=== PATIENT | male | born 1965 | race Caucasian/White ===

== ENCOUNTER → 2022-06-02 10:11 | Outpatient (CLI) | payer BC, SELFPAY ==
--- NOTE | ~2022-06-02 | CT_ITS ---
EXAMINATION: CT chest abdomen pelvis w con DATE: 06/02/2022 10:43 INDICATION: Malignant neoplasm of lung. TECHNIQUE: Computed tomography (CT) of the chest, abdomen, and pelvis was performed with 100 mL Omnip aque 350 intravenous contrast. Automated exposure control and iterative reconstruction technique were employed. The dose-length product was 547.64 mGy-cm. COMPARISON: None FINDINGS: CHEST CT: There are changes of right upper lobectomy. There is mild emphysema. There is mild scarring at the cecil ng apices. A calcified right lung nodule and calcified right hilar and mediastinal lymph nodes are co nsistent with old granulomatous disease. There is a 6 mm nodule in left upper lobe. There is a 2 mm n odule in left upper lobe. There is a 5 mm nodule in left upper lobe. No pleural effusion. The heart s ize is normal. There are coronary artery calcifications. No pericardial effusion. There is wall thick ening of the distal esophagus with calcifications. There is mild thoracic spondylosis. ABDOMEN/PELVIS CT: There are cysts in the liver measuring up to 8 mm. The gallbladder, spleen, pancreas, and adrenal gla nds are normal. There are simple cysts in the kidneys measuring up to 1.7 cm on the left. There are m ultiple masses in left kidney measuring soft tissue attenuation measuring up to 2.8 cm. The prostate is moderately enlarged. There are scattered diverticula in the colon. There is wall thickening of the sigmoid colon. There are changes of right hemicolectomy. There are no dilated loops of bowel. There are no pathologically enlarged lymph nodes. There is no free intraperitoneal fluid. There is mild galina nosis of celiac axis and moderate stenosis of superior mesenteric artery. There is no significant galina nosis of the renal arteries. 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 There is a patent femorofemoral bypass graft. There is mild lumbar spondylosis. IMPRESSION: 1. Pulmonary nodules measuring up to 6 mm, which may be granulomatous disease or less likely metastat ic disease. 2. Mild emphysema. 3. Wall thickening of the distal esophagus suspicious for malignancy. Endoscopy is recommended. 4. Left kidney masses measuring up to 2.8 cm, which may be hemorrhagic cysts and/or neoplasm(s). Abdo men CT without and with contrast is recommended. 5. Wall thickening of the sigmoid colon, which may be chronic diverticulitis. Reviewed, dictated and finalized at location A. UP EXAMINER IMPRESSION: 1. Pulmonary nodules measuring up to 6 mm, which may be granulomatous disease o r less likely metastatic disease. 2. Mild emphysema. 3. Wall thickening of the distal esophagus suspicious for malignancy. Endoscopy is recommended. 4. Left kidney masses measuring up to 2.8 cm, which may be hemorrhagic cysts an d/or neoplasm(s). Abdomen CT without and with contrast is recommended. 5. Wall thickening of the sigmoid colon, which may be chronic diverticulitis.
[2022-06-02 10:35] LABS: Estimated Glomerular Filt Rate > 60
== END ==
PROVIDERS: PCP Family Medicine Sports Medicine
DX: C34.90 Malignant neoplasm of unspecified part of unspecified bronchus or lung (principal); C18.9 Malignant neoplasm of colon, unspecified; C85.97 Non-Hodgkin lymphoma, unspecified, spleen; R91.8 Other nonspecific abnormal finding of lung field; J43.9 Emphysema, unspecified; N28.89 Other specified disorders of kidney and ureter
CPT/HCPCS: 71260; 74177; Q9967

== ENCOUNTER → 2023-08-14 09:06 | Outpatient (CLI) | payer BC, SELFPAY ==
--- NOTE | ~2023-08-14 | CT_ITS ---
Clinical Indication: Lung cancer, colon cancer CT Scan of the Chest, Abdomen, and Pelvis with Contrast: Technique: Contiguous sections were acquired throughout the chest, abdomen, and pelvis after intraven ous administration of 100 cc of Omnipaque 350. Dose reduction technique was used on this scan by michelle gutierrez automated exposure control and iterative reconstruction technique. The dose-length product (DL P) was 469.40 mGy-cm. COMPARISON: 06/02/2022 Findings: There is no evidence of any significant mediastinal, hilar or axillary lymphadenopathy. Calcified med iastinal lymph nodes are present. There are atherosclerotic calcifications of the aorta and coronary arteries. No aortic aneurysm or dissection evident. There is no evidence of pleural or pericardial effusion. . Patient is status post right upper lobectomy with associated postoperative change. There is mild b iapical scarring. There is a 6 mm left upper lobe pulmonary nodule, mildly increased from prior exam (axial image 63). Stable focal groundglass nodule in the left lower lobe. The liver, spleen, pancreas, gallbladder, adrenals and right kidney are within normal limits. Stable 2.5 cm solid-appearing mass at the left lower renal pole. There are atherosclerotic calcifications of the aorta. No lymphadenopathy. No bowel obstruction or bowel wall thickening. There is evidence of prior partial right colectomy. Possible mild urinary bladder wall thickening. Prostate gland minimally enlarged. Femoral-femoral byp ass noted. Impression: 6 mm left upper lobe pulmonary nodule, probably minimally increased from prior exam. Minimal interval change suggests a benign lesion. Status post right upper lobectomy. Stable 2.5 cm solid appearing mass the left lower renal pole. Stability suggests a benign lesion. Status post partial right colectomy. Reviewed, dictated and finalized at [facility]. L CAD TECH Impression: 6 mm left upper lobe pulmonary nodule, probably minimally increased from prior exam. Minimal interval change suggests a benign lesion. Status post right upper lobectomy. Stable 2.5 cm solid appearing mass the left lower renal pole. Stability suggest s a benign lesion. Status post partial right colectomy.
== END ==
DX: C34.90 Malignant neoplasm of unspecified part of unspecified bronchus or lung (principal); C18.9 Malignant neoplasm of colon, unspecified; C85.80 Other specified types of non-Hodgkin lymphoma, unspecified site
CPT/HCPCS: 71260; 74177; Q9967